=== PATIENT | male | born 1935 | race Caucasian/White ===

== ENCOUNTER 2020-04-02 17:57 | Inpatient (IN) | payer BC, OTHER ==
[~2020-04-02] VITALS: Ht 175.3 cm; Wt 87.5 kg
--- NOTE | 2020-04-02 18:06 | NUR ---
pt bib private ambulance on 5150 hold from [facility] to be medically cleared for mhu admission.
[2020-04-02] MEDS ORDERED: INSU100V7 SQ (18:13)
[2020-04-02] MEDS ORDERED: APIX2.5T PO (18:13)
[2020-04-02] MEDS ORDERED: TAMS-3 PO (18:13)
[2020-04-02] MEDS ORDERED: ATOR10TA PO (18:13)
[2020-04-02] MEDS ORDERED: AMLO5TAB9 PO (18:13)
[2020-04-02] MEDS ORDERED: FURO-151 PO (18:13)
[2020-04-02] MEDS ORDERED: CLOP75TA15 PO (18:13)
[2020-04-02] MEDS ORDERED: DIAZ5TAB PO (18:13)
[2020-04-02] MEDS ORDERED: CARV3.12 PO (18:13)
[2020-04-02] MEDS ORDERED: SACU1TAB7 PO (18:13)
--- NOTE | 2020-04-02 18:39 | NUR ---
pt had [facility] with good apetite.
--- NOTE | 2020-04-02 19:00 | NUR ---
Medically cleared by Dr Woo.
[2020-04-02 20:00] VITALS: BP 162/87
--- NOTE | 2020-04-02 20:10 | NUR ---
Transfered to MHU via gurny with no distress noted.
[2020-04-02] MEDS ORDERED: ACETAMINOPHEN 325 MG TABLET PO PRN (21:00)
[2020-04-02] MEDS ORDERED: MAG HYDROX/AL HYDROX/SIMETH 30 ML LIQUID UDC PO PRN (21:00)
[2020-04-02] MEDS ORDERED: MAGNESIUM HYDROXIDE 30 ML LIQUID UDC PO PRN (21:00)
[2020-04-02] MEDS ORDERED: BLOOD SUGAR DIAGNOSTIC 1 EACH STRIP VI ONE (21:00)
[2020-04-02] MEDS ORDERED: TEMAZEPAM 7.5 MG CAPSULE PO PRN (21:00)
--- NOTE | 2020-04-03 03:46 | NUR ---
Admitted patient from ER with admitting diagnosis of danger to self and gravely disabled. On 72 hours hold up to 04/05/20 at 0100 am. AAO x1, only by name. No acute distress or SOB was noted. Mood depressed, flat affect. Condition fair, VSS. Very confused. Not a reliable historian. Used previous medical record for history. Denies SI and hurting others. Physical assessment done. Skin assessed, picture taken and put in the chart. Safety measure maintained. Fall precaution observed. Continue to monitor and will endorse to the oncoming nurse accordingly.
--- NOTE | 2020-04-03 05:13 | NUR ---
Patient was agitated and try to get out of bed. PRN Klonopin 0.5 mg tab was removed from the pexes and offered to the patient, but patient refused to take it. Klonopin was returned to the return bin. Charge nurse, Gisselle, was witness for returning.
[2020-04-03] MEDS ORDERED: OLANZAPINE 10 MG VIAL IM ONE (06:15)
[2020-04-03] MEDS ORDERED: LORAZEPAM 2 MG/1 ML VIAL IM ONE (06:15)
--- NOTE | 2020-04-03 06:47 | NUR ---
Patient refused to have blood draw.
[2020-04-03 07:30] VITALS: BP 114/74
[2020-04-03] MEDS: CLONAZEPAM 0.5 MG TABLET PO PRN (08:39)
--- NOTE | 2020-04-03 10:32 | NUR ---
BOYD Initial Discharge Plan: Patient is currently residing with his daughter Judy Ventura ([phone]) at [address], [place] [address]. Per daughter, she has been looking into an assisted living facility for the patient upon discharge. BOYD will continue to work with patient, family, and MD to ensure a safe and proper discharge plan.
--- NOTE | 2020-04-03 10:34 | NUR ---
SW Family Contact: Spoke with patient's daughter, Judy Ventura ([phone]) and collected collateral information, see assessment. Judy stated that she has been in contact with [facility] [address] [place] [address] ([phone]) for possible placement. Sw will follow up with the facility to gather information and help facilitate patient upon discharge.
--- NOTE | 2020-04-03 10:51 | NUR ---
Social Work Firearms Report (DOJ): Cloud Engagement Partner completed and submitted a [employer] firearms report for 5150 danger to others and grave disability certification. A copy of report has been placed in patient chart.
--- NOTE | 2020-04-03 11:09 | NUR ---
BOYD Coordination of Care: SW called and spoke with Diogo Order Entry Specialist at [facility] [address] [address] [facility] [place] [address] ([phone]). Diogo stated that the patient's daughter has been in touch about placement for the patient at their facility. Diogo will fax this telegraphic typewriter operator a physician's report that needs to be filled out and faxed back to him. Diogo stated that they would initially do an assessment of the patient prior to accepting him at their facility. This telegraphic typewriter operator informed that no visitors are allowed in the hospital at this time due to COVID-19. Diogo stated that they can have the nurse conduct a phone assessment with this telegraphic typewriter operator and the nurse in the hospital. This telegraphic typewriter operator confirmed that this is acceptable, and can be done after the doctor's initial assessment to have a clearer treatment plan.
[2020-04-03] MEDS ORDERED: APIXABAN 5 MG TABLET PO SCH (12:00)
[2020-04-03] MEDS: CLOPIDOGREL 75 MG TABLET PO SCH (13:03)
[2020-04-03 15:50] VITALS: BP 172/74
[2020-04-03] MEDS: APIXABAN 5 MG TABLET PO SCH (17:20)
[2020-04-03 20:00] VITALS: BP 163/86
[2020-04-03] MEDS: ATORVASTATIN 10 MG TABLET PO SCH (20:47)
[2020-04-03] MEDS: QUETIAPINE FUMARATE 25 MG TABLET PO SCH (20:47)
[2020-04-04 07:30] VITALS: BP 154/83
[2020-04-04] MEDS: CLOPIDOGREL 75 MG TABLET PO SCH (08:30)
[2020-04-04] MEDS: AMLODIPINE 5 MG TABLET PO SCH ×2 (08:31→09:37)
[2020-04-04] MEDS: CARVEDILOL 3.125 MG TABLET PO SCH ×2 (08:33→09:37)
[2020-04-04] MEDS: FUROSEMIDE 40 MG TABLET PO SCH (08:33)
[2020-04-04] MEDS: CLONAZEPAM 0.5 MG TABLET PO PRN ×3 (08:35→17:40)
[2020-04-04] MEDS ORDERED: TAMSULOSIN HCL 0.4 MG CAP.SR.24H PO SCH (09:00)
[2020-04-04] MEDS: APIXABAN 5 MG TABLET PO SCH ×2 (09:18→16:30)
--- NOTE | 2020-04-04 09:42 | NUR ---
patient was very agitated, spit of some of the meds, including his klonopin, norvas, coreg, administered again once the patient agreed to take it
[2020-04-04] MEDS: QUETIAPINE FUMARATE 25 MG TABLET PO SCH ×2 (11:57→20:45)
[2020-04-04] MEDS: OLANZAPINE 10 MG VIAL IM ONE ×2 (13:00→13:14)
[2020-04-04] MEDS: LORAZEPAM 2 MG/1 ML VIAL IM ONE ×2 (13:00→13:14)
--- NOTE | 2020-04-04 13:49 | NUR ---
patient spitted out new ordered morning dose of Seroquel, after some time patient agreed to take it, removed another dose of Seroquel for pexis, administered as ordered. patient noted with labile mood, refuses medication, then agrees, calms down, another minute agitated, after few minutes of Seroquel administration, gets severe agitation, trying to jump, hit the staff, charge nurse obtained order for IM injection of Zyprexa and Ativan as ordered, while the IM was ready to be given, patient noted calm down, held Ativan and Zyprexa IM, pharmacy and MD aware aware, continue to monitor for behavior,
--- NOTE | 2020-04-04 14:58 | NUR ---
patient is calm, ativan and zyprexa wasted with witness of another nurse, not administered, continue to monitor patient behaviour
[2020-04-04 16:00] VITALS: BP 107/71
--- NOTE | 2020-04-04 19:49 | NUR ---
REPORT GIVEN TO NIGHT NURSE RN
[2020-04-04] MEDS: ATORVASTATIN 10 MG TABLET PO SCH (20:45)
[2020-04-04 21:34] VITALS: BP 168/62
[2020-04-05 07:30] VITALS: BP 154/90
[2020-04-05] MEDS: FUROSEMIDE 40 MG TABLET PO SCH (08:10)
[2020-04-05] MEDS: QUETIAPINE FUMARATE 25 MG TABLET PO SCH ×3 (08:11→17:22)
[2020-04-05] MEDS: CLOPIDOGREL 75 MG TABLET PO SCH (08:11)
[2020-04-05] MEDS: APIXABAN 5 MG TABLET PO SCH ×2 (08:15→17:18)
[2020-04-05] MEDS: AMLODIPINE 5 MG TABLET PO SCH (08:16)
[2020-04-05] MEDS: CARVEDILOL 3.125 MG TABLET PO SCH (08:16)
--- NOTE | 2020-04-05 12:49 | NUR ---
GPS: RECEIVED PT UP IN SHELLY-CHAIR AWAKE AND CONFUSED. PT A/OX 1, UNAWARE OF SURROUNDING AND SI OR INTENT NOT COGNITIVELY ABLE TO RELATE TO STAFFS. RECEIVED ENDORSEMENT PT SLEPT WELL AT NIGHT. PT ON CONTINUE 1:1 CARE AT THIS TIME, ABLE TO ADMINISTERED MEDICATIONS BY CONCEAL WITH FOOD DUE TO PT REFUSED X3, COOPERATIVE WITH CARE. PT WILL BE MONITOR AND CONTINUE PROVIDING SAFE THERAPEUTIC ENVIRONMENT. Q/15 MINS COUNT ONGOING WITH 1:1 IN ROOM.
[2020-04-05 16:00] VITALS: BP 167/95
--- NOTE | 2020-04-05 18:21 | NUR ---
PT ON 14DAYS HOLD, A/OX2, NO SOB NOTED. PT NOTED WITH SOME IMPROVEMENT, BUT STILL CONFUSE AND UNAWARE OF SURROUNDING. PT WAS TRANSFER TO 3RD FLOOR OVERFLOW RM 303 @ 1820, ACCOMPANIED BY 1:1 NURSE. REPORT GIVEN TO RECEIVING NURSE AND MADE AWARE OF PT CONDITION. ALL DUE MEDICATIONS AT 5PM GIVEN AND TOLERATED WELL. CLINICAL LAW PROFESSOR NURSE OVERSEEING ALL TRANSFER NEED AND F/UP.
--- NOTE | 2020-04-05 18:30 | NUR ---
Received in RM 303 with 1:1 sitter. AOx1, stated he had a crappy day when asked how he was doing. On RA with no SOB or distress noted at this time. Pt calm lying bed watching TV, 1:1 sitter at bedside. Bed locked in lowest position with siderails 2x up. No other complaints at this time
[2020-04-05] MEDS: ATORVASTATIN 10 MG TABLET PO SCH (20:34)
--- NOTE | 2020-04-05 20:40 | NUR ---
Received patient awake and alert in bed with 1:1 sitter at bedside. Patient A/Ox1. No complaints of pain or SOB. Patient cooperative with care, administered medication and tolerated well. Patient will be transferred back down to MHU in room 145B.
[2020-04-05 20:44] VITALS: BP 150/90
[2020-04-05] MEDS ORDERED: TAMSULOSIN HCL 0.4 MG CAP.SR.24H PO SCH (21:00)
--- NOTE | 2020-04-05 21:45 | NUR ---
Patient transferred to MHU bed 145B in stable condition, report given to SAUMYA Rothman.
--- NOTE | 2020-04-05 21:53 | NUR ---
Pt arrived in the unit at 2145 via wheelchair from [facility] 3rd floor overflow. AAO x1. No acute distress noted. FLACC 0. Safety measures maintained. Will continue to monitor.
[2020-04-05] MEDS: CLONAZEPAM 0.5 MG TABLET PO PRN (22:32)
[2020-04-06 07:30] VITALS: BP 161/110
[2020-04-06] MEDS: CARVEDILOL 3.125 MG TABLET PO SCH (07:50)
[2020-04-06 07:51] VITALS: BP 161/110
[2020-04-06] MEDS: AMLODIPINE 5 MG TABLET PO SCH (07:51)
[2020-04-06] MEDS: APIXABAN 5 MG TABLET PO SCH (07:52)
[2020-04-06] MEDS: CLOPIDOGREL 75 MG TABLET PO SCH (07:54)
[2020-04-06] MEDS: FUROSEMIDE 40 MG TABLET PO SCH (07:54)
[2020-04-06] MEDS: QUETIAPINE FUMARATE 25 MG TABLET PO SCH (07:54)
--- NOTE | 2020-04-06 11:51 | NUR ---
UR Note: Authorization # [id number] Spoke with Xu Portainer Operator from [place] ( [phone] ) and faxed patient's clinicals including history and physical, progress notes, medication and labs.
--- NOTE | 2020-04-06 12:04 | NUR ---
Received patient this am in mulu chair. B/p noted high 161/110, hr 99. Medicated with Coreg, Norvasc, Plavix , Lasix and more. Patient was eating breakfast at that time. Upon rounding, patient noted to have change in level of consciousness, leaning over to the right side, still answering question. Patient said " I feel terrible". Re check of blood pressure was 171/78 HR 55. MANAGER SAFE Stew notified and rapid response called. Blood sugar was 250. EKG showed controlled A-Fib. D/T Patient c/o headache. Code Stroke called. Patient received X-Ray and sent to ER.
--- NOTE | 2020-04-06 12:04 | NUR ---
Rapid Response Rapid Response called due to patient's change in level of consciousness. Upon assessment, patient complaining of severe and sudden onset headache accompanied with severe dizziness. Per primary rn, patient is much more lethargic now than baseline. Past medical history of CVA, atrial fibrillation. Patient is A/Ox1, hypertensive with SBP in 170s. EKG done, controlled a-fib. RR and SpO2 WNL on room air. Noted progressive decline in mental status. Escalated Rapid Response to Code Stroke-- transferred to ED for follow-through. On arrival to ED, noted decline in left arm motor efforts; little effort against gravity. Code Stroke called in ED. See ED documentation.
--- NOTE | 2020-04-06 12:59 | NUR ---
called and spoke with , orders made to DC hold and may transfer to ER for further eval, read back orders and carried out , patient family aware Addendum: 04/06/20 at 1302 by GRACIE MATIAS RN patient was discharge for further eval secondary to high blood pressure,
[2020-04-06] MEDS ORDERED: MAGN400O6 PO (13:46)
[2020-04-06] MEDS ORDERED: TEMA15CA PO (13:46)
[2020-04-06] MEDS ORDERED: CLON0.5T4 PO (13:46)
[2020-04-06] MEDS ORDERED: QUET25TA PO (13:46)
[2020-04-06] MEDS ORDERED: MAG-55 PO (13:46)
--- NOTE | 2020-04-06 15:32 | NUR ---
UR Note: Authorization # [id number] Spoke with Xu Industrial Truck Driver from [place] ( ) and informed of patient's discharge from the psychiatry unit to the medical unit. Xu will continue to work on patient's outpatient psychiatric services referral and update this check writer salesperson with the information.
--- NOTE | 2020-04-06 15:33 | NUR ---
BOYD Discharge Note: Patient was discharged today from MHU to the Emergency Room to rule out CVA. Patient will then be admitted to medical-surgical floor and the 5150 hold is discontinued. BOYD was working on placement for the patient at [address] [place] [address] ([phone]). [facility] upon accepting the patient to their facility. Originally spoke with Diogo in admissions at the facility who stated that can accept the patient, and a physician's report need to filled out and faxed to them. Milagro from [facility] will be providing aftercare psychiatric services for the patient upon discharge ([phone]), and she is aware of patient's current status. Patient will also follow up with his primary care physician Dr. Arroyo [address], [place] [address] ([phone]). Patient's daughter/SHAWN Kim ([phone]) is aware of the patient's discharge. Addendum: 04/07/20 at 0840 by LAURI DERAS In addition: [facility] ([phone]) requested that patient be transferred to [facility]. Patient was transferred from [facility] to [facility] to Aamir out CVA.
== END 2020-04-06 13:35 | disposition short-term general hospital (02) | DRG 885 ==
LOC: ER 18:08 → GPS 19:49 → MEDSURG3 04-05 18:38 → GPSOV3 04-05 20:04 → GPS 04-05 21:35
PROVIDERS: ADMIT Psychiatry & Neurology Psychiatry; ATTEND Nurse Practitioner Acute Care
DX: F29 Unspecified psychosis not due to a substance or known physiological condition (principal); I48.20 Chronic atrial fibrillation, unspecified; G93.40 Encephalopathy, unspecified; Z79.01 Long term (current) use of anticoagulants; E11.9 Type 2 diabetes mellitus without complications; F03.90 Unspecified dementia, unspecified severity, without behavioral disturbance, psychotic disturbance, mood disturbance, and anxiety; N40.0 Benign prostatic hyperplasia without lower urinary tract symptoms; Z86.73 Personal history of transient ischemic attack (TIA), and cerebral infarction without residual deficits; I10 Essential (primary) hypertension; Z79.4 Long term (current) use of insulin; Z79.02 Long term (current) use of antithrombotics/antiplatelets
CPT/HCPCS: 71045; A4663; J2060; J2358

== ENCOUNTER 2020-04-06 12:07 | Emergency (ER) | payer BC, OTHER ==
[~2020-04-06] VITALS: Ht 175.3 cm; Wt 83.9 kg
[~2020-04-06 12:07] MED LIST: AMLO5TAB9 PO; APIX2.5T PO; ATOR10TA PO; CARV3.12 PO; CLOP75TA15 PO; FURO-151 PO; INSU100V7 SQ; SACU1TAB7 PO; TAMS-3 PO
--- NOTE | 2020-04-06 12:07 | NUR ---
Transferred patient from MHU to ED for possible CVA workup. Patient complaining of sudden onset severe headache and severe dizziness. Per primary nurse, patient is more lethargic now than baseline this morning. A/Ox1. Noted progressive decline of mental status and left arm weakness-- unable to lift arm, little effort against gravity. Last known well time is unclear
--- NOTE | 2020-04-06 12:09 | NUR ---
PT CAME TO ER FROM [facility] FOR POSSIBLE STROKE EVALUATION. PT WITH LEFTSIDE WEAKNESS. Addendum: 04/06/20 at 1356 by FEDERICO THE LAST KNOWN WELL ON PT IS QUESTIONABLE.
--- NOTE | 2020-04-06 12:10 | NUR ---
TELE STROKE ACTIVATED.
--- NOTE | 2020-04-06 12:11 | NUR ---
PT TO CT WITH INSPECTOR WATCH ASSEMBLY ACCOMPANIED BY SAUMYA BRAXTON.
--- NOTE | 2020-04-06 12:20 | NUR ---
ER TALKING TO TELE STROKE NEUROLOGIST VIA TELESTROKE MONITOR, WHILE THE PT IS IN CT SCAN
[2020-04-06 12:28] LABS: BASOPHILS % (AUTO) 0.4 % (0.0-2.0); EOSINOPHILS % (AUTO) 1.6 % (0.0-7.0); HEMATOCRIT 48.3 % (36.7-47.1); HEMOGLOBIN 16.1 g/dL (12.5-16.3); LYMPHOCYTES % (AUTO) 24.5 % (20.5-51.5); MEAN CORPUSCULAR HEMOGLOBIN 32.2 uug (23.8-33.4); MEAN CORPUSCULAR HGB CONC 33 g/dL (32.5-36.3); MEAN CORPUSCULAR VOLUME 96.5 fL (73.0-96.2); MONOCYTES % (AUTO) 10.1 % (0.0-11.0); NEUTROPHILS % (AUTO) 63.4 % (38.5-71.5); PLATELET COUNT (AUTO) 146 K/uL (152-348); RED BLOOD CELL COUNT(AUTO) 5.01 MIL/uL (4.06-5.63)
[2020-04-06 12:29] LABS: EOSINOPHILS # (AUTO) 0.1 K/uL (0.0-0.7); LYMPHOCYTES # (AUTO) 1.7 K/uL (20.0-40.0); MONOCYTES # (AUTO) 0.7 K/uL (2.0-10.0); NEUTROPHILS # (AUTO) 4.4 K/uL (1.8-8.9)
[2020-04-06 12:32] LABS: CARBON DIOXIDE 29 mmol/L (21-32); CHLORIDE 109 mmol/L (98-107); CREATININE 1.7 mg/dL (0.6-1.3); GLUCOSE 236 mg/dL (74-106); UREA NITROGEN, BLOOD 26 mg/dL (7-18)
--- NOTE | 2020-04-06 12:34 | NUR ---
PT BACK FROM CT. WILL DO INHSS AT THIS POINT. PT SEEMS TO HAVE IMPROVED IN SPEECH, AND MOVING EXTREMETIES.
[2020-04-06 12:36] LABS: CHOLESTEROL 128 mg/dL (<200); HDL CHOLESTEROL 44 mg/dL (40-60); TRIGLYCERIDES 178 MG/DL (30-150)
--- NOTE | 2020-04-06 12:39 | NUR ---
ASSISSTING PT WITH COMMUNICATING WITH TELE NEUROLOGIST.
[2020-04-06] MEDS ORDERED: IV NORMAL SALINE 250 ML IV ONE (12:55)
[2020-04-06] MEDS ORDERED: IOHEXOL 350 100 ML INFUS..BTL ONE (12:55)
[2020-04-06] MEDS ORDERED: SWABABLE VALVE TRANSFER SET EA MC ONE (12:55)
--- NOTE | 2020-04-06 13:12 | NUR ---
PROVIDED CLINICAL DATA TO [facility] OVER THE PHONE.
--- NOTE | 2020-04-06 13:22 | NUR ---
DR CAMACHO FROM [facility] TALKING TO DR. ESPAÑA OVER THE PHONE.
[2020-04-06] MEDS ORDERED: ASPIRIN 325 MG TABLET PO ONE (13:30)
[2020-04-06] MEDS ORDERED: ASPIRIN 325 MG TABLET ONE (13:32)
--- NOTE | 2020-04-06 13:37 | NUR ---
PAO TALKING TO DR. ESPAÑA OVER THE PHONE
--- NOTE | 2020-04-06 13:42 | NUR ---
PT WATCHING TV, NO SIGN OF DISTRESS.
[2020-04-06] MEDS ORDERED: MAGN400O6 PO (13:46)
[2020-04-06] MEDS ORDERED: QUET25TA PO (13:46)
[2020-04-06] MEDS ORDERED: MAG-55 PO (13:46)
[2020-04-06] MEDS ORDERED: TEMA15CA PO (13:46)
[2020-04-06] MEDS ORDERED: CLON0.5T4 PO (13:46)
--- NOTE | 2020-04-06 13:47 | NUR ---
PT EATING SANDWICH USIG BOTH ARMS WITHOUT DIFFICULTY.
--- NOTE | 2020-04-06 14:01 | NUR ---
DR. ESPAÑA TALKING TO [place] OVER THE PHONE.
--- NOTE | 2020-04-06 14:11 | NUR ---
DR. ESPAÑA TALKING TO DR. HENDRICKS FROM [facility]
--- NOTE | 2020-04-06 14:17 | NUR ---
FAXED THE CLINICAL INFO TO [phone]. RECIEVED THE CONFIRMATION THAT FAXED WENT THROUGH
--- NOTE | 2020-04-06 14:25 | NUR ---
KISHOR FROM [facility] CALLED AND SAID THAT THE PT WILL BE TRANSFERED TO [facility]. VIVIEN WILL ARRANGE THE TRANSFER, WILL CALL BACK EITH DETAILS.
--- NOTE | 2020-04-06 14:34 | NUR ---
PT AMBUALTORY WITH FALL RISK
--- NOTE | 2020-04-06 15:10 | NUR ---
REFAXED THE CLINICAL INFO PER REQUEST OF AJMIR AT [facility].
--- NOTE | 2020-04-06 15:18 | NUR ---
JAMIR CALLED BACK WITH ETA 45 MINUTES. WILL CALL BACK WITH REPORT NUMBER.
--- NOTE | 2020-04-06 15:24 | NUR ---
JAMIR CALLED BACK, THE REPORT NUMBER IS [phone]
--- NOTE | 2020-04-06 15:25 | NUR ---
PT RESTING, AROUSABLE, VSS.
--- NOTE | 2020-04-06 15:34 | NUR ---
PT DAUGHTER, BOBBY JEFFRIES CALLED. SHE WAS INFORMED ABOUT PT BEING TRANSFERED TO [facility]. HER NUMBER IS [phone]
--- NOTE | 2020-04-06 16:00 | NUR ---
private ambulance at bedside to transfer the pt to [facility].
--- NOTE | 2020-04-06 16:20 | NUR ---
called [facility] and gave report to charge nurse.
== END 2020-04-06 16:00 | disposition short-term general hospital (02) ==
LOC: ER 12:07
DX: G45.9 Transient cerebral ischemic attack, unspecified (principal); R29.722 NIHSS score 22; Z86.73 Personal history of transient ischemic attack (TIA), and cerebral infarction without residual deficits; Z79.01 Long term (current) use of anticoagulants; Z79.4 Long term (current) use of insulin; Z79.899 Other long term (current) drug therapy; E11.9 Type 2 diabetes mellitus without complications; F03.90 Unspecified dementia, unspecified severity, without behavioral disturbance, psychotic disturbance, mood disturbance, and anxiety; I48.91 Unspecified atrial fibrillation; N40.0 Benign prostatic hyperplasia without lower urinary tract symptoms
CPT/HCPCS: 36415; 70450; 70496; 70498; 80048; 80061; 82962; 84484; 85025; 85730; 93005; 99285; Q9967; 70030-TC; A4663; J7050